=== PATIENT | female | born 1950 | race Two or more races ===

== ENCOUNTER 2025-02-18 19:21 | Inpatient (IN) | payer OTHER, MEDICAID ==
[~2025-02-18] VITALS: Ht 162.6 cm; Wt 68.2 kg
--- NOTE | 2025-02-18 19:40 | ECG ---
[facility] Test Date: 2025-02-18 Test Time: 19:22:46 Pat Name: ASTRID LEAVITT Department: ED Room: Gender: F Voice Intercept Technician: surinder : 1950 Requested By: EMERGENCY EMERGENCY Order Number: [id number] Reading MD: Beck Santamaria Measurements Intervals [place] Rate: 60 P: 10 MD: 205 QRS: 57 QRSD: 106 T: 62 QT: 423 QTc: 423 Interpretive Statements Sinus rhythm Abnormal R-wave progression, early transition Baseline wander in lead(s) V3 Electronically Signed On 02-18-2025 21:00:48 PDT by Beck Santamaria Please click the below link to view image of tracing.
[2025-02-18 20:36] LABS: Basophils # (auto) 0.1 10 ^3/uL (0-0.2); Basophils % (auto) 1.3 % (0.0-2.0); Eosinophils # (auto) 0.1 10 ^3/uL (0-0.8); Eosinophils % (auto) 1.5 % (0.0-7.0); Hematocrit 34.6 % (36.0-46.0); Hemoglobin 11.2 g/dL (12.2-16.2); Lymphocytes # (auto) 1.5 10 ^3/uL (0.4-5.4); Lymphocytes % (auto) 21.1 % (10.0-50.0); Mean Corpuscular Hemoglobin 27.2 pg (28.0-32.0); Mean Corpuscular Hgb Conc. 32.3 g/dL (32.0-36.0); Mean Corpuscular Volume 84.1 fL (80.0-100.0); Monocytes # (auto) 0.7 10 ^3/uL (0-1.3); Monocytes % (auto) 10.7 % (0.0-12.0); Neutrophils # (auto) 4.5 10 ^3/uL (1.6-8.6); Neutrophils % (auto) 65.4 % (37.0-80.0); Nucleated Red Blood Cells % 0.7 %; Platelet Count (auto) 316 10^3/uL (140-450); Red Blood Cells 4.11 10^6/uL (4.0-5.20); Red Cell Distribution Width 16.1 % (11.8-14.3); White Blood Cell 6.9 10^3/uL (4.4-10.8)
[2025-02-18 20:42] LABS: Alanine Aminotransferase 14 U/L (7-40); Alkaline Phosphatase 94 U/L (46-116); Anion Gap 7 (5-15); BUN/Creatinine Ratio 16.9 (10.0-20.0); Bilirubin, Total 0.4 mg/dL (0.2-1.0); Calcium 9.8 mg/dL (8.7-10.4); Carbon Dioxide 30 mmol/L (20-31); Chloride 103 mmol/L (98-107); Lipase 41 U/L (12-53); Sodium 140 mmol/L (136-145); Total Protein 7.5 g/dL (5.7-8.2)
[2025-02-18 20:50] LABS: Albumin 4.9 g/dL (3.2-4.8); Aspartate Aminotransferase 11 U/L (13-40); Blood Urea Nitrogen 26 mg/dL (9-23); Glucose 110 mg/dL (74-106); Potassium 5.1 mmol/L (3.5-5.1)
--- NOTE | 2025-02-18 21:05 | ECG ---
[facility] Test Date: 2025-02-18 Test Time: 20:39:37 Pat Name: ASTRID LEAVITT Department: ER Room: Gender: F Ore Bridge Operator: GOGO : 1950 Requested By: EMERGENCY EMERGENCY Order Number: [id number] Reading MD: Beck Santamaria Measurements Intervals [place] Rate: 58 P: 9 DC: 213 QRS: 59 QRSD: 84 T: 74 QT: 421 QTc: 414 Interpretive Statements Sinus rhythm Borderline prolonged DC interval Probable left atrial enlargement Abnormal R-wave progression, early transition Nonspecific T abnormalities, lateral leads Baseline wander in lead(s) V1 Electronically Signed On 02-18-2025 21:05:45 PDT by Beck Santamaria Please click the below link to view image of tracing.
--- NOTE | 2025-02-18 21:43 | DVH ---
INDICATION: Chest pain TECHNIQUE: Frontal view of the chest. COMPARISON: None FINDINGS: Findings. The heart and mediastinal contours are grossly unremarkable. There is no evidence of pleur al disease. The lungs are clear. There is bilateral mid lung baker subsegmental platelike atelectasi s. There is elevation of the right hemidiaphragm. The bony structures of the chest are intact witho ut fracture. IMPRESSION: 1. Bilateral subsegmental platelike atelectasis 2 . No evidence of airspace consolidation or pulmonary venous congestion
[2025-02-18] MEDS ORDERED: NITR0.4S29 SL (22:11)
--- NOTE | 2025-02-18 22:12 | ED.PDOC ---
HPI Comments Patient is a 74-year-old female who appears much older than her chronology arrives to the ED today via EMS with complaints of diffuse chest pain as well as left shoulder pain for the past two days. Patient states the pain has abdomen flowed over the past two days. Patient recently had a 2D echo performed by Dr. Daugherty. Unknown as to the results from that event. Patient denies any fever nausea or vomiting. Vital signs were stable on arrival. Patient received nitro and aspirin EN route. Patient arrives with a minimal chest pain. Chief Complaint: Chest Pain Time Seen by MD: 19:52 Reviewed Notes: Nurses Notes, Youth Corrections Officer Notes Allergies: Coded Allergies: NO KNOWN ALLERGIES (Unverified , 02/18/25) Home Meds Active Scripts Nitroglycerin (Nitrostat) 0.4 Mg Sub, 0.4 MG SL Q12HP PRN, #10 TAB Prov:TORRES SWENSON PAC 02/18/25 Information Source: Patient, Emergency Med Personnel Mode of Arrival: EMS Severity: Moderate Timing: Days Duration: Since onset Prehospital treatment: 12 Lead EKG, Treatment Location: Chest (L), Substernal Radiation: Shoulder (L) Quality: Squeezing, Pressure Onset: At Rest Cardiac Risk Factors: Other (History of chest pain concerns. Possible angina) PE Risk Factors: None History of: Similar pain in past, Aspirin Past Medical History PAST MEDICAL HISTORY: Denies Past Medical History (Other): Unknown but recent cardiac history Surgical History: Denies all surgeries BOX ORDER PERSON History: No Pertinent BOX ORDER PERSON History Family History Family History: Reviewed,noncontributory to illness, No family hx of Cancer, No family hx of DM, No family hx of Heart taylor, No family hx of HTN, No family hx ofKidney taylor, No family hx of Liver taylor, No family hx of Lung taylor, No family hx of Stroke Social History Smoker: Non-Smoker Alcohol: Denies ETOH Use Drugs: Denies Drug Use Lives In: Home Constitutional: denies: chills, diaphoresis, fatigue, fever, malaise, sweats, weakness, others EENTM: denies: blurred vision, double vision, ear bleeding, ear discharge, ear drainage, ear pain, ear ringing, eye pain, eye redness, hearing loss, mouth pain, mouth swelling, nasal discharge, nose bleeding, nose congestion, nose pain, photophobia, tearing, throat pain, throat swelling, voice changes, others Respiratory: denies: cough, hemoptysis, orthopnea, SOB at rest, shortness of breath, SOB with excertion, stridor, wheezing, others Cardiovascular: reports: chest pain; denies: dizzy spells, diaphoresis, Dyspnea on exertion, edema, irregular heart beat, left arm pain, lightheadedness, palpitations, PND, syncope, others Gastrointestinal: denies: abdomen distended, abdominal pain, blood streaked bowels, constipated, diarrhea, dysphagia, difficulty swallowing, hematemesis, melena, nausea, poor appetite, poor fluid intake, rectal bleeding, rectal pain, vomiting, others Genitourinary: denies: abnormal vagina bleeding, burning, dyspareunia, dysuria, flank pain, frequency, hematuria, incontinence, pain, , vagina discharge, urgency, others Neurological: denies: dizziness, fainting, headache, left sided numbness, left sided weakness, numbness, paresthesia, pre-existing deficit, right sided numbness, right sided weakness, seizure, speech problems, tingling, tremors, weakness, others Musculoskeletal: denies: back pain, gout, joint pain, joint swelling, muscle pain, muscle stiffness, neck pain, others Integumetry: denies: bruises, change in color, change in hair/nails, dryness, laceration, lesions, lumps, rash, wounds, others Allergic/Immunocompromised: denies: Difficulty Healing, Frequent Infections, Hives, Itching, others Hematologic/Lymphatic: denies: anemia, blood clots, easy bleeding, easy bruising, swollen glands, others Endocrine: denies: excessive hunger, excessive sweating, excessive thirst, excessive urination, flushing, intolerance to cold, intolerance to heat, unexplained weight gain, unexplained weight loss, others Psychiatric: denies: anxiety, bipolar disorder, depression, hopeless, panic disorder, schizophrenia, sleepless, suicidal, others Physical Exam General Appearance: Mild Distress (Patient was only in mild distress at time of evaluation.), Normal HEENT: Normal ENT Inspection, Pharynx Normal, TMs Normal Neck: Full Range of Motion, Non-Tender, Normal, Normal Inspection Respiratory: Chest Non-Tender, Lungs Clear, No Accessory Muscle Use, No Respiratory Distress, Normal Breath Sounds, Other (Unremarkable auscultation bilateral lung baker.) Cardiovascular: No Edema, No JVD, No Murmur, No Gallop, Normal Peripheral Pulses, Regular Rate/Rhythm, Other (Unremarkable cardiac evaluation.) Breast Exam: Deferred Gastrointestinal: No Organomegaly, Non Tender, No Pulsatile Mass, Normal Bowel Sounds, Soft Genitalia: Deferred Pelvic: Deferred Rectal: Deferred Extremities: No calf tenderness, Normal capillary refill, Normal inspection, Normal range of motion, Non-tender, No pedal edema Neurologic: Alert, No Motor Deficits, Normal Affect, Normal Mood, No Sensory Deficits Cerebellar Function: NOT DONE Reflexes: NOT DONE Skin: Dry, Normal Color, Warm Lymphatic: No Adenopathy Was a procedure done? Was a procedure done?: No CP Differential Dx Differential Diagnosis: A-fib, A-Flutter, Anxiety / Panic Attack, Atrial Dysrhythmia, AV Block 1st Degree, UT Differential Diagnosis: CHF Differential Diagnosis: Angina X-Ray, Labs, Meds, VS Vital Signs Date Time Temp Pulse Resp B/P (MAP) Pulse Ox O2 Delivery O2 Flow Rate FiO2 02/18/25 20:39 58 02/18/25 19:33 98.4 65 18 102/56 (71) 97 98.4 02/18/25 19:22 60 Lab Test 02/18/25 21:58 02/18/25 20:14 Range/Units Troponin I High Sensitivity Pending 10 </=34 ng/L White Blood Count 6.9 4.4-10.8 10^3/uL Red Blood Count 4.11 4.0-5.20 10^6/uL Hemoglobin 11.2 L 12.2-16.2 g/dL Hematocrit 34.6 L 36.0-46.0 % Mean Corpuscular Volume 84.1 80.0-100.0 fL Mean Corpuscular Hemoglobin 27.2 L 28.0-32.0 pg Mean Corpuscular Hemoglobin Concent 32.3 32.0-36.0 g/dL Red Cell Distribution Width 16.1 H 11.8-14.3 % Platelet Count 316 140-450 10^3/uL Mean Platelet Volume 9.6 6.9-10.8 fL Neutrophils (%) (Auto) 65.4 37.0-80.0 % Lymphocytes (%) (Auto) 21.1 10.0-50.0 % Monocytes (%) (Auto) 10.7 0.0-12.0 % Eosinophils (%) (Auto) 1.5 0.0-7.0 % Basophils (%) (Auto) 1.3 0.0-2.0 % Neutrophils # (Auto) 4.5 1.6-8.6 10 ^3/uL Lymphocytes # (Auto) 1.5 0.4-5.4 10 ^3/uL Monocytes # (Auto) 0.7 0-1.3 10 ^3/uL Eosinophils # (Auto) 0.1 0-0.8 10 ^3/uL Basophils # (Auto) 0.1 0-0.2 10 ^3/uL Nucleated Red Blood Cells 0.7 % Sodium Level 140 136-145 mmol/L Potassium Level 5.1 3.5-5.1 mmol/L Chloride Level 103 98-107 mmol/L Carbon Dioxide Level 30 20-31 mmol/L Anion Gap 7 5-15 Blood Urea Nitrogen 26 H 9-23 mg/dL Creatinine 1.54 H 0.550-1.02 mg/dL Glomerular Filtration Rate Calc 36 >90 mL/min BUN/Creatinine Ratio 16.9 10.0-20.0 Serum Glucose 110 H 74-106 mg/dL Calcium Level 9.8 8.7-10.4 mg/dL Total Bilirubin 0.4 0.2-1.0 mg/dL Aspartate Amino Transferase (AST) 11 L 13-40 U/L Alanine Aminotransferase (ALT) 14 7-40 U/L Alkaline Phosphatase 94 46-116 U/L B-Type Natriuretic Peptide 133.95 0-100 pg/mL Total Protein 7.5 5.7-8.2 g/dL Albumin 4.9 H 3.2-4.8 g/dL Lipase 41 12-53 U/L X-Ray, Labs, Meds, VS Comment All studies performed the ED were evaluated by me personally. Serum laboratories were unremarkable for any generalized concerns, but did reveal some kidney issues with elevated creatinine and BUN. Cardiac markers were unremarkable. EKG revealed a sinus rhythm with a rate of 60. Abnormal R-wave progression and early transition as well as baseline wander in leads V3. AL interval of 205 and QT interval 423. Chest x-ray was unremarkable for any consolidation or fibrotic concerns. Some atelectasis noted. Not sure the cause of the patient's chest pain concerns, but due to the acute renal issues as well as patient's age and unrelenting chest pain. Patient will be admitted for acute renal injury as well as acute coronary syndrome. Time of 1ST Reevaluation: 22:10 Reevaluation 1ST: Improved Consultation: PCP, Cardiology Patient Education/Counseling: Diagnosis, Treatment Family Education/Counseling: Diagnosis, Treatment Departure 1 Departure Time of Disposition: 22:10 Impression: Primary Impression: Acute coronary syndrome Additional Impression: Acute renal injury Disposition: ADMITTED INPATIENT Condition: Stable Discharged With: Self Critical Care Note Critical Care Time?: No Stability Stability form required: No Heart Score Heart Score: Heart Score Response (Comments) Value History Slightly Suspicious 0 EKG Repolarization Disturb 1 Age >65 2 Risk Factors 1 or 2 risk factors 1 Troponin Normal limit 0 Total 4 TORRES SWENSON PAC February 18, 2025 22:12
[2025-02-18] MEDS ORDERED: ONDANSETRON HCL 4 MG/2 ML VIAL IV PRN (23:00)
[2025-02-18] MEDS ORDERED: MORPHINE SULFATE INJ 2 MG/ml SYRG IV PRN (23:00)
[2025-02-18] MEDS ORDERED: NITROGLYCERIN 0.4 MG SL TAB SL PRN (23:00)
--- NOTE | 2025-02-18 23:26 | DVHHP2 ---
History of Present Illness History of Present Illness Patient is 74 years old female with a history of hypertension, diabetes mellitus type 2, hyperlipidemia, heart failure, anxiety, depression came with a complaint of chest pain. As per patient patient started having chest pain yesterday around noon when she was lying down, sudden onset, central, radiating to the jaw and left side of the chest, sharp, 10/10, intermittent, no aggravating or relieving factor. Patient also reported he has been having exertional shortness of breaths like from walking from due to the parking lot she gets short of breath for last more then a year. On further inquiry patient also reported she has been nauseous and had 1 time vomiting yesterday, only fluid no blood. Patient denied any fever, palpitation, acute joint pain or swelling, leg swelling dysuria dysarthria or change in vision. Initial lab workup revealed hemoglobin 11 2, serum creatinine 1.54, BUN 26, troponin I 10> 8, BNP 133.95. CXR- Bilateral subsegmental platelike atelectasis. Lower extremity Doppler study negative for DVT. PCP Dr. Mack Stovall Recreation Manager Dr. 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 daily, prazosin 1 mg p.o. daily, sertraline 50 mg p.o. daily, gabapentin 100 mg 3 times a day, atorvastatin, pantoprazole, levetiracetam 500 mg b.i.d., tizanidine 2 mg at bedtime, aspirin 81 mg p.o. daily, fluoxetine 20 mg daily, Review of Systems Review of Systems Allergy- NKDA Patient was seen today at the bedside. Cardiovascular- deny acute cough or palpitation Respiratory denies cough or or wheezing Gastrointestinal- denies any rectal bleeding, nausea or vomiting Musculoskeletal-denies acute joint swelling or tenderness or redness Neurological- denies acute dysarthria, dysphagia, change in vision Psychiatry- denies depression or SI or HI Skin- denies acute rash or purpura Allergies: Coded Allergies: NO KNOWN ALLERGIES (Unverified , 02/18/25) Medications Current Medications Medications Dose Ordered Sig/Murtaza Route Start Time Stop Time Status Last Admin Dose Admin Sodium Chloride 10 ml Q8HR IV 02/19/25 06:00 Ondansetron HCl 4 mg Q4HP PRN IV 02/18/25 23:00 Morphine Sulfate 2 mg Q4HPRN PRN IV 02/18/25 23:00 Nitroglycerin 0.4 mg Q5MINP PRN SL 02/18/25 23:00 Morphine Sulfate 2 mg Q30M PRN IV 02/18/25 23:00 Exam Vital Signs Vital Signs Date Time Temp Pulse Resp B/P (MAP) Pulse Ox O2 Delivery O2 Flow Rate FiO2 02/18/25 23:19 97.9 57 15 117/72 (87 93 97.9 Exam General examination-awake, alert, conversant HEENT- PEERLA, no acute nasal discharge Cardiovascular- S1-S2 audible, rate and rhythm regular, no murmur Respiratory- CTAB, no wheeze or rhonchi Gastrointestinal-nontender, bowel sound+. Nondistended Musculoskeletal-no acute joint swelling or tenderness or redness Lower extremity- no leg swelling Neurological- cranial nerves intact, no acute dysarthria or dysphagia Psychiatry- denies depression or SI or HI Skin- no acute rash or purpura Labs/Xrays Labs Test 02/18/25 21:58 02/18/25 20:14 Range/Units Troponin I High Sensitivity 8 </=34 ng/L White Blood Count 6.9 4.4-10.8 10^3/uL Red Blood Count 4.11 4.0-5.20 10^6/uL Hemoglobin 11.2 L 12.2-16.2 g/dL Hematocrit 34.6 L 36.0-46.0 % Mean Corpuscular Volume 84.1 80.0-100.0 fL Mean Corpuscular Hemoglobin 27.2 L 28.0-32.0 pg Mean Corpuscular Hemoglobin Concent 32.3 32.0-36.0 g/dL Red Cell Distribution Width 16.1 H 11.8-14.3 % Platelet Count 316 140-450 10^3/uL Mean Platelet Volume 9.6 6.9-10.8 fL Neutrophils (%) (Auto) 65.4 37.0-80.0 % Lymphocytes (%) (Auto) 21.1 10.0-50.0 % Monocytes (%) (Auto) 10.7 0.0-12.0 % Eosinophils (%) (Auto) 1.5 0.0-7.0 % Basophils (%) (Auto) 1.3 0.0-2.0 % Neutrophils # (Auto) 4.5 1.6-8.6 10 ^3/uL Lymphocytes # (Auto) 1.5 0.4-5.4 10 ^3/uL Monocytes # (Auto) 0.7 0-1.3 10 ^3/uL Eosinophils # (Auto) 0.1 0-0.8 10 ^3/uL Basophils # (Auto) 0.1 0-0.2 10 ^3/uL Nucleated Red Blood Cells 0.7 % Sodium Level 140 136-145 mmol/L Potassium Level 5.1 3.5-5.1 mmol/L Chloride Level 103 98-107 mmol/L Carbon Dioxide Level 30 20-31 mmol/L Anion Gap 7 5-15 Blood Urea Nitrogen 26 H 9-23 mg/dL Creatinine 1.54 H 0.550-1.02 mg/dL Glomerular Filtration Rate Calc 36 >90 mL/min BUN/Creatinine Ratio 16.9 10.0-20.0 Serum Glucose 110 H 74-106 mg/dL Calcium Level 9.8 8.7-10.4 mg/dL Total Bilirubin 0.4 0.2-1.0 mg/dL Aspartate Amino Transferase (AST) 11 L 13-40 U/L Alanine Aminotransferase (ALT) 14 7-40 U/L Alkaline Phosphatase 94 46-116 U/L B-Type Natriuretic Peptide 133.95 0-100 pg/mL Total Protein 7.5 5.7-8.2 g/dL Albumin 4.9 H 3.2-4.8 g/dL Lipase 41 12-53 U/L Assessment/Plan Assessment/Plan Assessment and plan Acute chest pain, rule out acute coronary syndrome Rule out acute pulmonary embolism-elevated D-dimer, ordered V/Q scan Hypertension Diabetes mellitus type 2 Hyperlipidemia History of heart failure systolic versus diastolic Sinus bradycardia, likely due to beta nguyen- patient was on metoprolol Suspected EVELINA likely due to VMN Suspected CKD likely stage III Mild anemia likely anemia of chronic disease Anxiety Depression CXR-Bilateral subsegmental platelike atelectasis. No evidence of airspace consolidation or pulmonary venous congestion BUN 33, troponin I with a normal limit, HbA1c 6.2 Plan Continue aspirin 81 mg p.o. daily Atorvastatin 40 mg p.o. q.h.s. Lasix 20 mg p.o. daily Pantoprazole as prescribed Lovenox DVT prophylaxis Insulin sliding scale as prescribed Ordered Echo 2D Ordered cardiology consult for further evaluation and care Ordered V/Q scan to rule out pulmonary embolism PCP Dr. Mack Stovall Recreation Manager Dr. Santamaria Goals of care, Code status ; discussed with >15 minutes PUD prophylaxis: Pantoprazole DVT prophylaxis: Lovenox Plan discussed with Dr. Hernández , nursing staff, Total time spent on patient evaluation, chart review, assessment and plan, discussion discussion >35 minutes Plan discussed with: Patient, Other (RN) My Orders Orders - VIKASH BANKS RESIDENT Procedure Category Date Status Time Admit ADMIT 02/18/25 Transmitted 22:51 Code Status CODE 02/18/25 Transmitted 22:51 Sodium Chloride Lock PHA 02/19/25 In Process (Saline Lock Ns) 06:00 Ondansetron Hcl PHA 02/18/25 In Process (Zofran) 23:00 Complete Blood Count LAB 02/19/25 Verified 04:00 Comprehensive LAB 02/19/25 Verified Metabolic Panel 04:00 Echo 2d Mode Cardiac US 02/18/25 Logged DOP 22:51 Morphine Sulfate PHA 02/18/25 In Process Injection 23:00 Nitroglycerin PHA 02/18/25 In Process Sublingual (Ntrostat 23:00 Morphine Sulfate PHA 02/18/25 In Process Injection 23:00 Oxygen By Nasal RT 02/18/25 Transmitted Cannula 22:51 Stat Ekg For Chest JOSE 02/18/25 In Process Pain 22:51 Notify Of Changes JOSE 02/18/25 In Process From Base 22:51 Bulk System Operator For JOSE 02/18/25 In Process 24 Hours 22:51 Emergency Dysrhythmia JOSE 02/18/25 In Process Protocol 22:51 Rhythm Strips Once JOSE 02/18/25 In Process Every Shift 22:51 Consistent DIET 02/19/25 Verified Carb(Ccho)Diabetes Breakfast Cardiac DIET 02/19/25 Verified Diet-2gna,Lofat,Lochol Breakfast Date of Service: February 18, 2025 Billing Provider: HERNÁNDEZ,IMRAN M MD Common Visit Codes: 39709-[id number] INP/OBS CARE (HIGH) Secondary Visit Codes: 21108-[id number] CARE PLAN 30 MINUTES VIKASH BANKS RESIDENT February 18, 2025 23:26
[2025-02-19] VITALS (9 sets, daily range): BP systolic 117–145; BP diastolic 54–70; PULSE 53–95; RESP 14–18; TEMP 97.3–97.8; O2SAT 94–96
[2025-02-19] MEDS: ATORVASTATIN 20 MG TAB PO ONE (00:45)
[2025-02-19] MEDS: ENOXAPARIN SOD 40 MG/0.4 ML SYRINGE SC ONE (00:45)
[2025-02-19] MEDS: PANTOPRAZOLE 40 MG/10 ML VIAL INJ IV ONE (00:45)
[2025-02-19] MEDS ORDERED: DEXTROSE (50%) 50ML SYRG IV PRN (00:45)
[2025-02-19] MEDS: ASPirin 81 mg TAB PO ONE (00:45)
--- NOTE | 2025-02-19 01:20 | DVH ---
Bilateral lower extremity venous duplex Clinical History: Sudden chest pain, D-dimer elevated Comparison: None Technique: Duplex Doppler evaluation of the deep venous systems of both lower extremities from the common femora l veins to the popliteal veins including color Doppler and spectral/pulsed waveform analysis was perf ormed. Findings: RIGHT SIDE: The common femoral vein was not visualized due to overlying bandage. The great saphenous vein was not visualized due to overlying bandage. The proximal superficial femoral vein was not visualized due to overlying bandage; the mid to distal superficial femoral vein demonstrates appropriate compressibility and waveform variability. There is normal compressibility at the tibioperoneal trunk. LEFT SIDE: The common femoral vein demonstrates appropriate compressibility and waveform variability. There is compressibility/patency of the great saphenous vein at the proximal thigh. The femoral vein demonstrates appropriate compressibility and waveform variability. There is normal compressibility at the tibioperoneal trunk. Impression: No evidence of right or left femoropopliteal venous thrombosis. The right common femoral vein, saphen ous vein, and proximal superficial femoral vein were not visualized due to overlying bandage.
[2025-02-19] MEDS: MORPHINE SULFATE INJ 2 MG/ml SYRG IV PRN (03:37)
[2025-02-19] MEDS ORDERED: TIZA4TAB9 PO (04:13)
[2025-02-19] MEDS ORDERED: PRAZ1CAP2 PO (04:13)
[2025-02-19] MEDS ORDERED: ATOR20TA PO (04:13)
[2025-02-19] MEDS ORDERED: ASPI-543 PO (04:13)
[2025-02-19] MEDS ORDERED: LIDO5PAD12 EX (04:13)
[2025-02-19] MEDS ORDERED: BACL20TA PO (04:13)
[2025-02-19] MEDS ORDERED: OYST1TAB OR (04:13)
[2025-02-19] MEDS ORDERED: FAMO-12 PO (04:13)
[2025-02-19] MEDS ORDERED: AMIT10TA12 PO (04:13)
[2025-02-19] MEDS ORDERED: MECL-90 PO (04:13)
[2025-02-19] MEDS ORDERED: SERT-206 PO (04:13)
[2025-02-19] MEDS ORDERED: PANC3000 PO (04:13)
[2025-02-19] MEDS ORDERED: METO-158 PO (04:13)
[2025-02-19] MEDS ORDERED: TOPI25CA5 PO (04:13)
[2025-02-19] MEDS ORDERED: GABA-1308 PO (04:13)
[2025-02-19] MEDS ORDERED: [UNRECOGNIZED DRUG - CODE] BU (04:13)
[2025-02-19] MEDS ORDERED: FLUO-125 PO (04:13)
[2025-02-19] MEDS ORDERED: NORT25CA GT (04:13)
[2025-02-19] MEDS ORDERED: PANT1INJ3 IV (04:13)
[2025-02-19] MEDS ORDERED: LORA-35 PO (04:13)
[2025-02-19] MEDS ORDERED: [UNRECOGNIZED DRUG - CODE] IV (04:13)
[2025-02-19] MEDS ORDERED: DIPH-751 PO (04:13)
[2025-02-19] MEDS ORDERED: LEVE500T40 PO (04:13)
[2025-02-19] MEDS ORDERED: FURO20TA3 PO (04:13)
[2025-02-19] MEDS ORDERED: FAMC125T2 PO (04:13)
[2025-02-19] MEDS ORDERED: SILD50TA PO ×2 (04:13)
[2025-02-19 05:02] LABS: Rapid Influenza A Negative (Negative); Rapid Influenza B Negative (Negative)
[2025-02-19 05:03] LABS: COVID19 ANTIGEN SOFIA FIA NEGATIVE (NEGATIVE)
[2025-02-19] MEDS: SODIUM CHLOR 0.9% PF (SALINE LOCK) 10ML VIAL/SYR IV SCH (05:52)
[2025-02-19 06:46] LABS: Alkaline Phosphatase 92 U/L (46-116)
[2025-02-19 06:47] LABS: Alanine Aminotransferase 13 U/L (7-40); Albumin 4.7 g/dL (3.2-4.8); Chloride 104 mmol/L (98-107); Magnesium 2.1 mg/dL (1.6-2.6); Potassium 4.3 mmol/L (3.5-5.1); Sodium 142 mmol/L (136-145); Total Protein 7.5 g/dL (5.7-8.2)
[2025-02-19 06:48] LABS: Bilirubin, Total 0.5 mg/dL (0.2-1.0)
[2025-02-19 06:50] LABS: Basophils # (auto) 0 10 ^3/uL (0-0.2); Basophils % (auto) 0.5 % (0.0-2.0); Eosinophils # (auto) 0.2 10 ^3/uL (0-0.8); Eosinophils % (auto) 2.4 % (0.0-7.0); Hematocrit 34.8 % (36.0-46.0); Hemoglobin 11.3 g/dL (12.2-16.2); Lymphocytes # (auto) 1.7 10 ^3/uL (0.4-5.4); Lymphocytes % (auto) 24.6 % (10.0-50.0); Mean Corpuscular Hemoglobin 27.2 pg (28.0-32.0); Mean Corpuscular Hgb Conc. 32.4 g/dL (32.0-36.0); Mean Corpuscular Volume 84.1 fL (80.0-100.0); Monocytes # (auto) 0.7 10 ^3/uL (0-1.3); Neutrophils # (auto) 4.2 10 ^3/uL (1.6-8.6); Neutrophils % (auto) 61.5 % (37.0-80.0); Nucleated Red Blood Cells % 0.2 %; Platelet Count (auto) 301 10^3/uL (140-450); Red Blood Cells 4.14 10^6/uL (4.0-5.20); Red Cell Distribution Width 16.3 % (11.8-14.3); White Blood Cell 6.8 10^3/uL (4.4-10.8)
[2025-02-19 06:51] LABS: Aspartate Aminotransferase 13 U/L (13-40); BUN/Creatinine Ratio 20.2 (10.0-20.0); Blood Urea Nitrogen 25 mg/dL (9-23); Calcium 10.5 mg/dL (8.7-10.4); Glucose 149 mg/dL (74-106)
[2025-02-19 06:56] LABS: Anion Gap 9 (5-15); Carbon Dioxide 29 mmol/L (20-31)
[2025-02-19] MEDS: ACCU-CHEK COMFORT CURVE STRIP VI SCH (06:59)
[2025-02-19] MEDS: InsuLIN REG 1unit/0.01ml Soln (100units/ml) SC SCH (07:00)
[2025-02-19] MEDS: FUROSEMIDE 40 MG TAB PO SCH (09:47)
[2025-02-19] MEDS: ASPirin 81 mg TAB PO SCH (09:47)
[2025-02-19] MEDS: SERTRALINE HCL 50 MG TAB PO SCH (09:48)
[2025-02-19] MEDS: PANTOPRAZOLE 40 MG/10 ML VIAL INJ IV SCH (09:49)
[2025-02-19] MEDS: ENOXAPARIN SOD 40 MG/0.4 ML SYRINGE SC SCH (09:49)
[2025-02-19 09:57] LABS: Hepatitis B Surface Antigen Negative (Negative)
[2025-02-19 10:18] LABS: Hepatitis C Antibody Negative (Negative)
--- NOTE | 2025-02-19 11:10 | DVHINCON2 ---
Date Seen: February 19, 2025 Referring Physician MD Kvng Reason for Consultation Chest pain History of Present Illness This is a 74-year-old female who presented to the emergency room via EMS with a chief complaint of chest pain since Saturday. Describes her chest pain as substernal radiating to the left chest wall area and left flank area, sharp in nature, intermittent, and non provoked. She follows up in the outpatient setting with Dr. Santamaria undergoing a recent cardiac catheterization without catheter based intervention given normal coronaries, a ventriculography revealing an EF of 60%, and significant pulmonary hypertension with right ventricular systolic pressures of 60 mmHg (02/10/2025). She underwent multiple 12 lead electrocardiogram revealing a sinus rhythm with an associated first-deg ree atrioventricular block. Significant medical history includes severe pulmonary hypertension on sildenafil therapy, primary hypertension, prediabetes, anxiety, depression, and history of drug abuse quitting approximately 10 years ago. Past Medical History Past medical history reviewed. No other significant than mentioned above. Past Surgical History Past surgical history reviewed. No other significant than mentioned above. Family History: Alcoholism G8 FATHER Arthritis G8 MOTHER Diabetes mellitus G8 MOTHER FH: lupus G8 SISTER Family History Family history reviewed. Social History Admits to occasional alcohol use. Denies the use of illicit drugs or tobacco use. Admits to history of tobacco, cocaine, and cannabinoids in the past. Allergies: Coded Allergies: NO KNOWN ALLERGIES (Unverified , 02/18/25) Home Meds Reported Medications Nortriptyline Hcl (PAMELOR CAPSULE) 25 Mg Cp, 25 MG GT DAILY, CAP 02/19/25 Amitriptyline Hcl (Amitriptyline Hcl) 10 Mg Tab, 10 MG PO HS for 30 Days, MG 0 Refills 02/19/25 Topiramate (Topiramate) 25 Mg Cap, 25 MG PO for 30 Days, MG 02/19/25 Sertraline Hcl (Sertraline Hcl) 50 Mg Tab, 50 MG PO DAILY for 30 Days, MG 02/19/25 Prazosin Hcl (Minipres) 1 Mg Cp, 1 CAP PO QPM, #30 CAP 02/19/25 Cetirizine Base (Quzyttir) 10 Mg/Ml Inj, 10 MG IV DAILY, INJ 02/19/25 Sildenafil Citrate (Viagra) 50 Mg Tab, 25 MG PO TID, TAB 02/19/25 Sildenafil Citrate (Viagra) 50 Mg Tab, 1 TAB PO UD, #6 TAB 5 Refills 02/19/25 Furosemide (Furosemide) 20 Mg Tab, MG PO BIDD for 30 Days, MG 02/19/25 Buprenorphine HCl (Belbuca) 75 Mcg Mis, 75 MCG BU, MISC 02/19/25 Lidocaine (Lidocaine Patch 5%) 5 % Pad, 5 % EX DAILY, PAD 02/19/25 Diphenhydramine Hcl (Banophen) 25 Mg Cap, 25 MG PO TID, CAP 02/19/25 Fluoxetine Hcl (Fluoxetine Hcl) 20 Mg Cap, 20 MG PO DAILY for 30 Days, MG 02/19/25 Aspirin (Aspir-Low) 81 Mg Tab, 81 MG PO DAILY for 30 Days, MG 02/19/25 Famciclovir (Famciclovir) 125 Mg Tab, 125 MG PO BID, TAB 02/19/25 Famotidine (Famotidine) 20 Mg Tab, 20 MG PO BID for 30 Days, MG 02/19/25 Tizanidine Hydrochloride (Zanaflex) 4 Mg Tab, 0.5 TAB PO QPM, #30 TAB 02/19/25 Loratadine (Loradamed) 10 Mg Tab, 10 MG PO DAILY, MG 02/19/25 Levetiracetam (Keppra) 500 Mg Tab, 1 TAB PO BID, #180 TAB 3 Refills 02/19/25 Pantoprazole Sodium (PANTOPRAZOLE SODIUM) 40 Mg Inj, 40 MG IV, INJ 02/19/25 Meclizine Hcl (Meclizine Hcl) 25 Mg Tab, 25 MG PO TID for 30 Days, MG 02/19/25 Metoprolol Tartrate (Metoprolol Tartrate) 50 Mg Tab, 50 MG PO for 30 Days, MG 02/19/25 Atorvastatin Calcium (Lipitor) 20 Mg Tab, 1 TAB PO DAILY, #90 TAB 1 Refill 02/19/25 Gabapentin (Gabapentin) 100 Mg Cap, 100 MG PO TID 02/19/25 Oyster Shell (OYSTER SHELL CALCIUM 500) 500 Mg Tab, 500 MG OR DAILY, TAB 02/19/25 Baclofen (Baclofen) 20 Mg Tab, 10 MG PO TID, TAB 02/19/25 Pancreatic Enzymes (CREON) 3,000 Unit Cap, 6000 UNIT PO TID, CAP 02/19/25 Home Meds Home medications reviewed. Current Medications Current Medications Medications (Trade) Dose Ordered Sig/Murtaza Route PRN Reason Start Time Stop Time Status Last Admin Sodium Chloride (Saline Lock Ns) 10 ml Q8HR IV 02/19/25 06:00 02/19/25 05:52 Ondansetron HCl (Zofran) 4 mg Q4HP PRN IV NAUSEA / VOMITING 02/18/25 23:00 Morphine Sulfate 2 mg Q4HPRN PRN IV SEVERE PAIN (7-10 PAIN SCALE) 02/18/25 23:00 02/19/25 03:37 Nitroglycerin (Ntrostat Sublingual) 0.4 mg Q5MINP PRN SL FOR CHEST PAIN 02/18/25 23:00 Morphine Sulfate 2 mg Q30M PRN IV FOR CHEST PAIN 02/18/25 23:00 Aspirin 81 mg DAILY PO 02/19/25 10:00 02/19/25 09:47 Atorvastatin Calcium (Lipitor) 40 mg HS PO 02/19/25 22:00 Enoxaparin Sodium (Lovenox) 40 mg DAILY SC 02/19/25 10:00 02/19/25 09:49 Pantoprazole Sodium (Protonix) 40 mg DAILY IV 02/19/25 10:00 02/19/25 09:49 Furosemide (Lasix Tablet) 20 mg DAILY PO 02/19/25 10:00 02/19/25 09:47 Sertraline HCl (Zoloft) 50 mg DAILY PO 02/19/25 10:00 02/19/25 09:48 Diagnostic Test (Pha) (Accu-Chek Comfort Curve T) 1 strip ACHS 02/19/25 07:00 02/19/25 06:59 Insulin Human Regular (InsuLIN R) ACHS SC 02/19/25 07:00 Dextrose 50 ml UD PRN IV Blood Sugar LESS THAN 60 02/19/25 00:45 Review of Systems Constitutional: No symptom reported Ears, Nose, & Throat: No symptom reported Eyes: No symptom reported Neurological: No symptoms reported Pulmonary/Respiratory: No symptom reported Cardiovascular: Chest pain Gastrointestinal: No symptom reported Genitourinary: No symptom reported Musculoskeletal: No symptom reported Skin: No symptom reported Psychiatric: No symptom reported Endocrine: No symptom reported Hemotologic/Lymphatic: No symptom reported Vital Signs Vital Signs Date Time Temp Pulse Resp B/P (MAP) Pulse Ox O2 Delivery O2 Flow Rate FiO2 02/19/25 09:47 124/61 02/19/25 09:30 97.3 72 16 94 97.3 02/19/25 08:00 Room Air* 0 21 Physical Exam General Appearance: Cooperative. Well developed. Well nourished. In no acute distress Head Exam: Normal inspection Neck Exam: Normal inspection. Non-tender. Normal alignment Pulmonary/Respiratory: Chest non-tender. Clear bilateral breath sounds Cardiovascular/Chest: Regular rate and rhythm. S1, S2. NSR. No murmurs. No JVD. Peripheral Pulses: 2+ Radial (R). 2+ Radial (L). 2+ Pedal (R). 2+ Pedal (L) Abdominal Exam: Normal bowel sounds. Soft. Nontender. No hepatospenomegaly. No masses Ankle Exam: Negative ankle edema Lower extremities: Negative lower extremity edema Neuro/Mental Status: A&O x4. Coherent Thoughts/Psych: Normal thought pattern. Appropriate mood and affect. Good judgement and insight Appearance: In no acute distress Skin Exam: Normal inspection. Normal color. Warm. Dry Labs/Diagnostic Data Labs Test 02/19/25 07:01 02/19/25 05:55 02/19/25 03:15 02/18/25 21:58 Range/Units POC Glucose 142 H 70-106 mg/dl White Blood Count 6.8 4.4-10.8 10^3/uL Red Blood Count 4.14 4.0-5.20 10^6/uL Hemoglobin 11.3 L 12.2-16.2 g/dL Hematocrit 34.8 L 36.0-46.0 % Mean Corpuscular Volume 84.1 80.0-100.0 fL Mean Corpuscular Hemoglobin 27.2 L 28.0-32.0 pg Mean Corpuscular Hemoglobin Concent 32.4 32.0-36.0 g/dL Red Cell Distribution Width 16.3 H 11.8-14.3 % Platelet Count 301 140-450 10^3/uL Mean Platelet Volume 9.7 6.9-10.8 fL Neutrophils (%) (Auto) 61.5 37.0-80.0 % Lymphocytes (%) (Auto) 24.6 10.0-50.0 % Monocytes (%) (Auto) 11.0 0.0-12.0 % Eosinophils (%) (Auto) 2.4 0.0-7.0 % Basophils (%) (Auto) 0.5 0.0-2.0 % Neutrophils # (Auto) 4.2 1.6-8.6 10 ^3/uL Lymphocytes # (Auto) 1.7 0.4-5.4 10 ^3/uL Monocytes # (Auto) 0.7 0-1.3 10 ^3/uL Eosinophils # (Auto) 0.2 0-0.8 10 ^3/uL Basophils # (Auto) 0 0-0.2 10 ^3/uL Nucleated Red Blood Cells 0.2 % Sodium Level 142 136-145 mmol/L Potassium Level 4.3 3.5-5.1 mmol/L Chloride Level 104 98-107 mmol/L Carbon Dioxide Level 29 20-31 mmol/L Anion Gap 9 5-15 Blood Urea Nitrogen 25 H 9-23 mg/dL Creatinine 1.24 H 0.550-1.02 mg/dL Glomerular Filtration Rate Calc 46 >90 mL/min BUN/Creatinine Ratio 20.2 H 10.0-20.0 Serum Glucose 149 H 74-106 mg/dL Calcium Level 10.5 H 8.7-10.4 mg/dL Magnesium Level 2.1 1.6-2.6 mg/dL Total Bilirubin 0.5 0.2-1.0 mg/dL Aspartate Amino Transferase (AST) 13 13-40 U/L Alanine Aminotransferase (ALT) 13 7-40 U/L Alkaline Phosphatase 92 46-116 U/L Total Protein 7.5 5.7-8.2 g/dL Albumin 4.7 3.2-4.8 g/dL Hepatitis B Surface Antigen Negative Negative Hepatitis C Antibody Negative Negative Influenza Type A Antigen Negative Negative Influenza Type B Antigen Negative Negative SARS-CoV-2 Antigen (Rapid) Negative NEGATIVE Troponin I High Sensitivity 8 </=34 ng/L Thyroid Stimulating Hormone (TSH) 3.20 0.55-4.78 uIU/mL Test 02/18/25 20:14 Range/Units D-Dimer, Quantitative 1.39 H 0.0-0.49 mg/L FEU Hemoglobin A1c 6.2 H <5.7 % A1C B-Type Natriuretic Peptide 133.95 0-100 pg/mL Lipase 41 12-53 U/L Assessment Chest pain rule out acute PE Pulmonary hypertension of severe degree (on sildenafil) Primary hypertension Prediabetes HX of drug abuse Plan/Recommendation (Dr. Santamaria) The patient underwent a transthoracic echocardiogram on 11/03/2024 revealing an LVEF of 60% right ventricular systolic pressures of 90 mmHg. She also underwent a recent right and left cardiac catheterization without catheter based intervention given normal coronaries and with right ventricular systolic pressure is measuring at 60 mmHg (02/10/2025). Patient is to continue sildenafil therapy and follow-up with Dr. Santamaria's as scheduled on 02/26/2025 at 9:45 a.m. in the setting of an unremarkable V/Q scan, there is no further cardiac workup indicated at this time. Thank you for allowing us to participate in this patient's care. Please call if you have any questions or concerns.. This medical document was created using an electronic medical record system with voice recognition software and computerized dictation system. Although this document has been carefully reviewed, there might still be some phonetic and typographical errors. Occasional wrong-word or ``sound-alike substitutions may have occurred due to the inherent limitations of voice recognition software. These areas are purely typographical due to imperfections of the software programs and do not reflect any compromise in the patient's medical care. Please read the chart carefully and recognize, using context, where these s ubstitutions have occurred. Plan discussed with: Patient, Other NYHA Physical activity limitations: NA Date of Service: February 19, 2025 Billing Provider: GISELE CAMPBELL Cardiology Common Codes: [id number] INP/OBS CARE (High) GISELE CAMPBELL February 19, 2025 11:10
--- NOTE | 2025-02-19 12:00 | DVH ---
EXAM: NM NM VQ SCAN HISTORY: PULMONARY EMBOLISM COMPARISON: None TECHNIQUE: 7 mCi of xenon 133 were utilized for the perfusion portion of the study. 4.2 mCi of Tc99m DTPA were utilized for the ventilation portion of the study. FINDINGS: Ventilation and perfusion images show homogeneous uptake of the radiotracer in both lungs without rogerio dence for large mismatched defect. IMPRESSION: 1. Low probability pulmonary embolism.
[2025-02-19 13:17] LABS: Urine Bacteria None Seen /hpf (None Seen)
--- NOTE | 2025-02-19 13:26 | DVHPN2 ---
Reviewed: Care Plan, H&P, Labs, Medications, Previous Orders, Radiology Changes from previous H/P or p: No Changes Objective Vitals Vital Signs Date Time Temp Pulse Resp B/P (MAP) Pulse Ox O2 Delivery O2 Flow Rate FiO2 02/19/25 13:21 97.6 53 18 117/57 (77) 96 97.6 02/19/25 08:00 Room Air* 0 21 Intake/Output Intake and Output 02/19/25 07:00 Intake Total 200 ml Balance 200 ml Intake Oral 200 ml # Voids 2 Medications Current Medications Medications Dose Ordered Sig/Murtaza Route Start Time Stop Time Status Last Admin Dose Admin Sodium Chloride 10 ml Q8HR IV 02/19/25 06:00 02/19/25 05:52 10 ML Ondansetron HCl 4 mg Q4HP PRN IV 02/18/25 23:00 Morphine Sulfate 2 mg Q4HPRN PRN IV 02/18/25 23:00 02/19/25 03:37 2 MG Nitroglycerin 0.4 mg Q5MINP PRN SL 02/18/25 23:00 Morphine Sulfate 2 mg Q30M PRN IV 02/18/25 23:00 Aspirin 81 mg DAILY PO 02/19/25 10:00 02/19/25 09:47 81 MG Atorvastatin Calcium 40 mg HS PO 02/19/25 22:00 Enoxaparin Sodium 40 mg DAILY SC 02/19/25 10:00 02/19/25 09:49 40 MG Pantoprazole Sodium 40 mg DAILY IV 02/19/25 10:00 02/19/25 09:49 40 MG Furosemide 20 mg DAILY PO 02/19/25 10:00 02/19/25 09:47 20 MG Sertraline HCl 50 mg DAILY PO 02/19/25 10:00 02/19/25 09:48 50 MG Diagnostic Test (Pha) 1 strip ACHS 02/19/25 07:00 02/19/25 11:48 1 STRIP Insulin Human Regular ACHS SC 02/19/25 07:00 Dextrose 50 ml UD PRN IV 02/19/25 00:45 Laboratory Results Laboratory Tests 02/19/25 05:55 Chemistry Test 02/18/25 20:14 02/18/25 21:58 02/19/25 05:55 Albumin 4.9 g/dL (3.2-4.8) H 4.7 g/dL (3.2-4.8) Calcium Level 9.8 mg/dL (8.7-10.4) 10.5 mg/dL (8.7-10.4) H Total Protein 7.5 g/dL (5.7-8.2) 7.5 g/dL (5.7-8.2) Magnesium Level 2.0 mg/dL (1.6-2.6) 2.1 mg/dL (1.6-2.6) Coagulation Test 02/18/25 20:14 D-Dimer, Quantitative 1.39 mg/L FEU (0.0-0.49) H Lipid panel Test 02/18/25 20:14 Lipase 41 U/L (12-53) Cardiac Markers Test 02/18/25 20:14 B-Type Natriuretic Peptide 133.95 pg/mL (0-100) LFT Test 02/18/25 20:14 02/19/25 05:55 Alanine Aminotransferase (ALT) 14 U/L (7-40) 13 U/L (7-40) Alkaline Phosphatase 94 U/L (46-116) 92 U/L (46-116) Aspartate Amino Transferase (AST) 11 U/L (13-40) L 13 U/L (13-40) Total Bilirubin 0.4 mg/dL (0.2-1.0) 0.5 mg/dL (0.2-1.0) HgA1c, TSH Test 02/18/25 20:14 02/18/25 21:58 Hemoglobin A1c 6.2 % A1C (<5.7) H Thyroid Stimulating Hormone (TSH) 3.20 uIU/mL (0.55-4.78) Urinalysis Test 02/19/25 13:05 Urine Color Pending Urine Clarity Pending Urine pH Pending Urine Specific [place] Pending Urine Protein Pending Urine Ketones Pending Urine Blood Pending Urine Nitrite Pending Urine Bilirubin Pending Urine Urobilinogen Pending Urine Leukocyte Esterase Pending Urine RBC Pending Urine Microscopic WBC Pending Urine Squamous Epithelial Cells Pending Urine Bacteria Pending Urine Glucose Pending Labs and/or images reviewed: Labs reviewed by me, Image(s) reviewed by me Assessment/Plan Assessment/Plan Chest pain rule out acute PE: Cardiology consult by Dr. Santamaria appreciated Pulmonary hypertension of severe degree (on sildenafil) Primary hypertension Prediabetes HX of drug abuse Left heart catheterization normal Ejection fraction 60 percent Patient has appointment with Dr. Santamaria 02/26/2025 9:45 AM. Plan discussed with: Patient Date of Service: February 19, 2025 Billing Provider: AYAAN DOMINGUEZ MD Common Visit Codes: [id number] INP/OBS CARE(HIGH) AYAAN DOMINGUEZ MD February 19, 2025 13:26
[2025-02-19 13:37] LABS: Urine Blood Negative /uL (Negative); Urine Clarity Clear (Clear); Urine Color Colorless (Yellow); Urine Protein, UAD Negative (Negative); Urine Squamous Epithelial Cell None Seen /hpf (<5); Urine Urobilinogen Normal (Negative); Urine WBC 1 /HPF (0-5)
[2025-02-19 13:49] LABS: Opiate Scree,Urine Neg (NEGATIVE)
[2025-02-19 13:51] LABS: Amphetamine Screen, Urine Neg (NEGATIVE); Barbiturate Scree,Urine Neg (NEGATIVE); Benzodiazephine Screen, Urine Neg (NEGATIVE); Cannabinoid Screen, Urine Neg (NEGATIVE); Cocaine Screen, Urine Neg (NEGATIVE); Phencyclidine Screen, Urine Neg (NEGATIVE)
--- NOTE | 2025-02-19 15:10 | DVHINCON2 ---
Date Seen: February 19, 2025 Referring Physician MD Kvng Reason for Consultation Chest pain History of Present Illness This is a 74-year-old female with a past medical history of severe pulmonary hypertension on sildenafil therapy, primary hypertension, prediabetes, anxiety, depression, and history of drug abuse quitting approximately 10 years ago who presented to the emergency room via EMS with a complaint of chest pain since Saturday. Patient describes her chest pain as substernal radiating to the left chest wall area and left flank area, sharp in nature, intermittent, and non provoked. Patient currently follows up in the outpatient setting with Dr. Santamaria undergoing a recent cardiac catheterization without catheter based intervention given normal coronaries, a ventriculography revealing an EF of 60%, and significant pulmonary hypertension with right ventricular systolic pressures of 60 mmHg (02/10/2025). She underwent multiple 12 lead electrocardiogram revealing a sinus rhythm with an associated first-degree atrioventricular block. CBC is unremarkable. UA is WNL. Troponin negative x 2. D-DIMER 1.39, BUN 25, AGITATOR OPERATOR 1.24, CA 10.5. Chest x-ray shows bilateral subsegmental platelike atelectasis. Patient was admitted to the hospital. I am asked to consult on this patient. Past Medical History Past medical history reviewed. No other significant than mentioned above. Past Surgical History Past surgical history reviewed. No other significant than mentioned above. Family History: Alcoholism G8 FATHER Arthritis G8 MOTHER Diabetes mellitus G8 MOTHER FH: lupus G8 SISTER Allergies: Coded Allergies: NO KNOWN ALLERGIES (Unverified , 02/18/25) Home Meds Reported Medications Nortriptyline Hcl (PAMELOR CAPSULE) 25 Mg Cp, 25 MG GT DAILY, CAP 02/19/25 Amitriptyline Hcl (Amitriptyline Hcl) 10 Mg Tab, 10 MG PO HS for 30 Days, MG 0 Refills 02/19/25 Topiramate (Topiramate) 25 Mg Cap, 25 MG PO for 30 Days, MG 02/19/25 Sertraline Hcl (Sertraline Hcl) 50 Mg Tab, 50 MG PO DAILY for 30 Days, MG 02/19/25 Prazosin Hcl (Minipres) 1 Mg Cp, 1 CAP PO QPM, #30 CAP 02/19/25 Cetirizine Base (Quzyttir) 10 Mg/Ml Inj, 10 MG IV DAILY, INJ 02/19/25 Sildenafil Citrate (Viagra) 50 Mg Tab, 25 MG PO TID, TAB 02/19/25 Sildenafil Citrate (Viagra) 50 Mg Tab, 1 TAB PO UD, #6 TAB 5 Refills 02/19/25 Furosemide (Furosemide) 20 Mg Tab, MG PO BIDD for 30 Days, MG 02/19/25 Buprenorphine HCl (Belbuca) 75 Mcg Mis, 75 MCG BU, MISC 02/19/25 Lidocaine (Lidocaine Patch 5%) 5 % Pad, 5 % EX DAILY, PAD 02/19/25 Diphenhydramine Hcl (Banophen) 25 Mg Cap, 25 MG PO TID, CAP 02/19/25 Fluoxetine Hcl (Fluoxetine Hcl) 20 Mg Cap, 20 MG PO DAILY for 30 Days, MG 02/19/25 Aspirin (Aspir-Low) 81 Mg Tab, 81 MG PO DAILY for 30 Days, MG 02/19/25 Famciclovir (Famciclovir) 125 Mg Tab, 125 MG PO BID, TAB 02/19/25 Famotidine (Famotidine) 20 Mg Tab, 20 MG PO BID for 30 Days, MG 02/19/25 Tizanidine Hydrochloride (Zanaflex) 4 Mg Tab, 0.5 TAB PO QPM, #30 TAB 02/19/25 Loratadine (Loradamed) 10 Mg Tab, 10 MG PO DAILY, MG 02/19/25 Levetiracetam (Keppra) 500 Mg Tab, 1 TAB PO BID, #180 TAB 3 Refills 02/19/25 Pantoprazole Sodium (PANTOPRAZOLE SODIUM) 40 Mg Inj, 40 MG IV, INJ 02/19/25 Meclizine Hcl (Meclizine Hcl) 25 Mg Tab, 25 MG PO TID for 30 Days, MG 02/19/25 Metoprolol Tartrate (Metoprolol Tartrate) 50 Mg Tab, 50 MG PO for 30 Days, MG 02/19/25 Atorvastatin Calcium (Lipitor) 20 Mg Tab, 1 TAB PO DAILY, #90 TAB 1 Refill 02/19/25 Gabapentin (Gabapentin) 100 Mg Cap, 100 MG PO TID 02/19/25 Oyster Shell (OYSTER SHELL CALCIUM 500) 500 Mg Tab, 500 MG OR DAILY, TAB 02/19/25 Baclofen (Baclofen) 20 Mg Tab, 10 MG PO TID, TAB 02/19/25 Pancreatic Enzymes (CREON) 3,000 Unit Cap, 6000 UNIT PO TID, CAP 02/19/25 Current Medications Current Medications Medications (Trade) Dose Ordered Sig/Murtaza Route PRN Reason Start Time Stop Time Status Last Admin Sodium Chloride (Saline Lock Ns) 10 ml Q8HR IV 02/19/25 06:00 02/19/25 05:52 Ondansetron HCl (Zofran) 4 mg Q4HP PRN IV NAUSEA / VOMITING 02/18/25 23:00 Morphine Sulfate 2 mg Q4HPRN PRN IV SEVERE PAIN (7-10 PAIN SCALE) 02/18/25 23:00 02/19/25 03:37 Nitroglycerin (Ntrostat Sublingual) 0.4 mg Q5MINP PRN SL FOR CHEST PAIN 02/18/25 23:00 Morphine Sulfate 2 mg Q30M PRN IV FOR CHEST PAIN 02/18/25 23:00 Aspirin 81 mg DAILY PO 02/19/25 10:00 02/19/25 09:47 Atorvastatin Calcium (Lipitor) 40 mg HS PO 02/19/25 22:00 Enoxaparin Sodium (Lovenox) 40 mg DAILY SC 02/19/25 10:00 02/19/25 09:49 Pantoprazole Sodium (Protonix) 40 mg DAILY IV 02/19/25 10:00 02/19/25 09:49 Furosemide (Lasix Tablet) 20 mg DAILY PO 02/19/25 10:00 02/19/25 09:47 Sertraline HCl (Zoloft) 50 mg DAILY PO 02/19/25 10:00 02/19/25 09:48 Diagnostic Test (Pha) (Accu-Chek Comfort Curve T) 1 strip ACHS 02/19/25 07:00 02/19/25 11:48 Insulin Human Regular (InsuLIN R) ACHS SC 02/19/25 07:00 Dextrose 50 ml UD PRN IV Blood Sugar LESS THAN 60 02/19/25 00:45 Review of Systems Constitutional: No symptom reported Ears, Nose, & Throat: No symptom reported Eyes: No symptom reported Neurological: No symptoms reported Pulmonary/Respiratory: No symptom reported Cardiovascular: Chest pain Gastrointestinal: No symptom reported Genitourinary: No symptom reported Musculoskeletal: No symptom reported Skin: No symptom reported Psychiatric: No symptom reported Endocrine: No symptom reported Hemotologic/Lymphatic: No symptom reported Vital Signs Vital Signs Date Time Temp Pulse Resp B/P (MAP) Pulse Ox O2 Delivery O2 Flow Rate FiO2 02/19/25 09:47 124/61 02/19/25 09:30 97.3 72 16 94 97.3 02/19/25 08:00 Room Air* 0 21 Physical Exam GENERAL: Alert and oriented x 3. No acute distress. EYES: PERRL, EOMI. Anicteric. HENT: Moist mucous membranes. LUNGS: Clear to auscultation bilaterally. CARDIOVASCULAR: Regular rate and rhythm. ABDOMEN: Soft, nontender and nondistended. EXTREMITIES: No edema. NEUROLOGIC: No focal neurological deficits. SKIN: Warm, dry. Labs/Diagnostic Data Labs Test 02/19/25 11:42 02/19/25 05:55 02/19/25 03:15 02/18/25 21:58 Range/Units POC Glucose 89 70-106 mg/dl White Blood Count 6.8 4.4-10.8 10^3/uL Red Blood Count 4.14 4.0-5.20 10^6/uL Hemoglobin 11.3 L 12.2-16.2 g/dL Hematocrit 34.8 L 36.0-46.0 % Mean Corpuscular Volume 84.1 80.0-100.0 fL Mean Corpuscular Hemoglobin 27.2 L 28.0-32.0 pg Mean Corpuscular Hemoglobin Concent 32.4 32.0-36.0 g/dL Red Cell Distribution Width 16.3 H 11.8-14.3 % Platelet Count 301 140-450 10^3/uL Mean Platelet Volume 9.7 6.9-10.8 fL Neutrophils (%) (Auto) 61.5 37.0-80.0 % Lymphocytes (%) (Auto) 24.6 10.0-50.0 % Monocytes (%) (Auto) 11.0 0.0-12.0 % Eosinophils (%) (Auto) 2.4 0.0-7.0 % Basophils (%) (Auto) 0.5 0.0-2.0 % Neutrophils # (Auto) 4.2 1.6-8.6 10 ^3/uL Lymphocytes # (Auto) 1.7 0.4-5.4 10 ^3/uL Monocytes # (Auto) 0.7 0-1.3 10 ^3/uL Eosinophils # (Auto) 0.2 0-0.8 10 ^3/uL Basophils # (Auto) 0 0-0.2 10 ^3/uL Nucleated Red Blood Cells 0.2 % Sodium Level 142 136-145 mmol/L Potassium Level 4.3 3.5-5.1 mmol/L Chloride Level 104 98-107 mmol/L Carbon Dioxide Level 29 20-31 mmol/L Anion Gap 9 5-15 Blood Urea Nitrogen 25 H 9-23 mg/dL Creatinine 1.24 H 0.550-1.02 mg/dL Glomerular Filtration Rate Calc 46 >90 mL/min BUN/Creatinine Ratio 20.2 H 10.0-20.0 Serum Glucose 149 H 74-106 mg/dL Calcium Level 10.5 H 8.7-10.4 mg/dL Magnesium Level 2.1 1.6-2.6 mg/dL Total Bilirubin 0.5 0.2-1.0 mg/dL Aspartate Amino Transferase (AST) 13 13-40 U/L Alanine Aminotransferase (ALT) 13 7-40 U/L Alkaline Phosphatase 92 46-116 U/L Total Protein 7.5 5.7-8.2 g/dL Albumin 4.7 3.2-4.8 g/dL Hepatitis B Surface Antigen Negative Negative Hepatitis C Antibody Negative Negative Influenza Type A Antigen Negative Negative Influenza Type B Antigen Negative Negative SARS-CoV-2 Antigen (Rapid) Negative NEGATIVE Troponin I High Sensitivity 8 </=34 ng/L Thyroid Stimulating Hormone (TSH) 3.20 0.55-4.78 uIU/mL Test 02/18/25 20:14 Range/Units D-Dimer, Quantitative 1.39 H 0.0-0.49 mg/L FEU Hemoglobin A1c 6.2 H <5.7 % A1C B-Type Natriuretic Peptide 133.95 0-100 pg/mL Lipase 41 12-53 U/L Assessment Chest pain rule out acute PE. Pulmonary hypertension of severe degree (on sildenafil). Primary hypertension. Prediabetes. History of drug abuse. Plan/Recommendation I agree with your ongoing assessment and care of plan. Patient has been seen by Camelia Dasilva NP on my behalf, her and I discussed the plan with the patient. The patient underwent a transthoracic echocardiogram on 11/03/2024 revealing an LVEF of 60% right ventricular systolic pressures of 90 mmHg. She also underwent a recent right and left cardiac catheterization without catheter based intervention given normal coronaries and with right ventricular systolic pressure is measuring at 60 mmHg (02/10/2025). Patient is to continue sildenafil therapy. Follow up with Dr. Santamaria's as scheduled on 02/26/2025 at 9:45 a.m. Aspirin, Lipitor. DVT and GI prophylactics. Diuretics with Lasix. Morphine for pain management. Additional plan as per the hospital course. Plan discussed with: Patient NYHA Physical activity limitations: NA Date of Service: February 19, 2025 Billing Provider: REGINO ELLER MD Cardiology Common Codes: [id number] INP/OBS CARE (High) REGINO ELLER MD February 19, 2025 12:22
[2025-02-19] MEDS: ATORVASTATIN 20 MG TAB PO SCH (21:43)
[2025-02-19] MEDS: MELATONIN 5 MG TAB PO ONE (21:43)
[2025-02-20 01:00] VITALS: BP 129/64; PULSE 64; RESP 16; TEMP 97.4; O2SAT 99
[2025-02-20 05:00] VITALS: BP 114/61; PULSE 59; RESP 18; TEMP 97.6; O2SAT 96
--- NOTE | 2025-02-20 08:10 | DVHPN2 ---
Reviewed: Care Plan, H&P, Labs, Medications, Previous Orders, Radiology Changes from previous H/P or p: No Changes Objective Vitals Vital Signs Date Time Temp Pulse Resp B/P (MAP) Pulse Ox O2 Delivery O2 Flow Rate FiO2 02/20/25 07:58 Room Air* 0 21 02/20/25 05:00 97.6 59 18 114/61 (78) 96 97.6 Intake/Output Intake and Output 02/20/25 07:00 Intake Total 825 ml Output Total 1 ml Balance 824 ml Intake Oral 825 ml Output Urine Total 1 ml # Voids 4 Medications Current Medications Medications Dose Ordered Sig/Murtaza Route Start Time Stop Time Status Last Admin Dose Admin Sodium Chloride 10 ml Q8HR IV 02/19/25 06:00 02/20/25 05:14 10 ML Ondansetron HCl 4 mg Q4HP PRN IV 02/18/25 23:00 Morphine Sulfate 2 mg Q4HPRN PRN IV 02/18/25 23:00 02/19/25 03:37 2 MG Nitroglycerin 0.4 mg Q5MINP PRN SL 02/18/25 23:00 Morphine Sulfate 2 mg Q30M PRN IV 02/18/25 23:00 Aspirin 81 mg DAILY PO 02/19/25 10:00 02/19/25 09:47 81 MG Atorvastatin Calcium 40 mg HS PO 02/19/25 22:00 02/19/25 21:43 40 MG Enoxaparin Sodium 40 mg DAILY SC 02/19/25 10:00 02/19/25 09:49 40 MG Pantoprazole Sodium 40 mg DAILY IV 02/19/25 10:00 02/19/25 09:49 40 MG Furosemide 20 mg DAILY PO 02/19/25 10:00 02/19/25 09:47 20 MG Sertraline HCl 50 mg DAILY PO 02/19/25 10:00 02/19/25 09:48 50 MG Diagnostic Test (Pha) 1 strip ACHS 02/19/25 07:00 02/20/25 06:04 1 STRIP Insulin Human Regular ACHS SC 02/19/25 07:00 Dextrose 50 ml UD PRN IV 02/19/25 00:45 Laboratory Results Laboratory Tests 02/19/25 05:55 Urinalysis Test 02/19/25 13:05 Urine Color Colorless (Yellow) Urine Clarity Clear (Clear) Urine pH 6.0 (5.0-9.0) Urine Specific [place] 1.010 (1.001-1.035) Urine Protein Negative (Negative) Urine Ketones Negative (Negative) Urine Blood Negative /uL (Negative) Urine Nitrite Negative (Negative) Urine Bilirubin Negative (Negative) Urine Urobilinogen Normal mg/dL (Negative) Urine Leukocyte Esterase Trace /uL (Negative) Urine RBC 1 /hpf (0 - 4) Urine Microscopic WBC 1 /HPF (0-5) Urine Squamous Epithelial Cells None seen /hpf (<5) Urine Bacteria None seen /hpf (None Seen) Urine Glucose Normal mg/dL (Normal) Microbiology Microbiology Date/Time Source Procedure Growth Status 02/19/25 03:15 Nose MRSA Screen - Final Complete Labs and/or images reviewed: Labs reviewed by me, Image(s) reviewed by me Assessment/Plan Assessment/Plan Chest pain rule out acute PE: Cardiology consult by Dr. Harding appreciated Pulmonary hypertension of severe degree (on sildenafil) Primary hypertension Prediabetes HX of drug abuse Left heart catheterization normal Ejection fraction 60 percent Patient has appointment with Dr. Santamaria 02/26/2025 9:45 AM. Plan discussed with: Patient My Orders Orders - AYAAN DOMINGUEZ MD Procedure Category Date Status Time Discharge DISCHARGE 02/20/25 Transmitted 08:08 Date of Service: February 20, 2025 Billing Provider: AYAAN DOMINGUEZ MD Common Visit Codes: [id number] INP/OBS CARE(HIGH) AYAAN DOMINGUEZ MD February 20, 2025 08:10
--- NOTE | 2025-02-20 08:13 | DVHDS2 ---
Discharge Summary Date of Admission February 18, 2025 at 22:51 Date of Discharge: February 20, 2025 Admitting Diagnosis Chest pain Wounds: None Labs/Diagnostic Data: Laboratory Results Test 02/20/25 06:03 02/19/25 13:05 02/19/25 05:55 02/19/25 03:15 POC Glucose 101 mg/dl (70-106) Urine Color Colorless (Yellow) Urine Clarity Clear (Clear) Urine pH 6.0 (5.0-9.0) Urine Specific [place] 1.010 (1.001-1.035) Urine Protein Negative (Negative) Urine Ketones Negative (Negative) Urine Blood Negative /uL (Negative) Urine Nitrite Negative (Negative) Urine Bilirubin Negative (Negative) Urine Urobilinogen Normal mg/dL (Negative) Urine Leukocyte Esterase Trace /uL (Negative) Urine RBC 1 /hpf (0 - 4) Urine Microscopic WBC 1 /HPF (0-5) Urine Squamous Epithelial Cells None seen /hpf (<5) Urine Bacteria None seen /hpf (None Seen) Urine Glucose Normal mg/dL (Normal) Urine Opiates Screen Neg (NEGATIVE) Urine Fentanyl Screen Neg (NEGATIVE) Urine Barbiturates Screen Neg (NEGATIVE) Urine Phencyclidine Screen Neg (NEGATIVE) Urine Amphetamines Screen Neg (NEGATIVE) Urine Benzodiazepines Screen Neg (NEGATIVE) Urine Cocaine Screen Neg (NEGATIVE) Urine Cannabinoids Screen Neg (NEGATIVE) White Blood Count 6.8 10^3/uL (4.4-10.8) Red Blood Count 4.14 10^6/uL (4.0-5.20) Hemoglobin 11.3 g/dL (12.2-16.2) Hematocrit 34.8 % (36.0-46.0) Mean Corpuscular Volume 84.1 fL (80.0-100.0) Mean Corpuscular Hemoglobin 27.2 pg (28.0-32.0) Mean Corpuscular Hemoglobin Concent 32.4 g/dL (32.0-36.0) Red Cell Distribution Width 16.3 % (11.8-14.3) Platelet Count 301 10^3/uL (140-450) Mean Platelet Volume 9.7 fL (6.9-10.8) Neutrophils (%) (Auto) 61.5 % (37.0-80.0) Lymphocytes (%) (Auto) 24.6 % (10.0-50.0) Monocytes (%) (Auto) 11.0 % (0.0-12.0) Eosinophils (%) (Auto) 2.4 % (0.0-7.0) Basophils (%) (Auto) 0.5 % (0.0-2.0) Neutrophils # (Auto) 4.2 10 ^3/uL (1.6-8.6) Lymphocytes # (Auto) 1.7 10 ^3/uL (0.4-5.4) Monocytes # (Auto) 0.7 10 ^3/uL (0-1.3) Eosinophils # (Auto) 0.2 10 ^3/uL (0-0.8) Basophils # (Auto) 0 10 ^3/uL (0-0.2) Nucleated Red Blood Cells 0.2 % Sodium Level 142 mmol/L (136-145) Potassium Level 4.3 mmol/L (3.5-5.1) Chloride Level 104 mmol/L (98-107) Carbon Dioxide Level 29 mmol/L (20-31) Anion Gap 9 (5-15) Blood Urea Nitrogen 25 mg/dL (9-23) Creatinine 1.24 mg/dL (0.550-1.02) Glomerular Filtration Rate Calc 46 mL/min (>90) BUN/Creatinine Ratio 20.2 (10.0-20.0) Serum Glucose 149 mg/dL (74-106) Calcium Level 10.5 mg/dL (8.7-10.4) Magnesium Level 2.1 mg/dL (1.6-2.6) Total Bilirubin 0.5 mg/dL (0.2-1.0) Aspartate Amino Transferase (AST) 13 U/L (13-40) Alanine Aminotransferase (ALT) 13 U/L (7-40) Alkaline Phosphatase 92 U/L (46-116) Total Protein 7.5 g/dL (5.7-8.2) Albumin 4.7 g/dL (3.2-4.8) Hepatitis B Surface Antigen Negative (Negative) Hepatitis C Antibody Negative (Negative) Influenza Type A Antigen Negative (Negative) Influenza Type B Antigen Negative (Negative) SARS-CoV-2 Antigen (Rapid) Negative (NEGATIVE) Test 02/18/25 21:58 02/18/25 20:14 Troponin I High Sensitivity 8 ng/L (</=34) Thyroid Stimulating Hormone (TSH) 3.20 uIU/mL (0.55-4.78) D-Dimer, Quantitative 1.39 mg/L FEU (0.0-0.49) Hemoglobin A1c 6.2 % A1C (<5.7) B-Type Natriuretic Peptide 133.95 pg/mL (0-100) Lipase 41 U/L (12-53) Other Laboratory Tests 02/19/25 05:55 Brief Hx & Hospital Course: 74-year-old female with a history of pulmonary hypertension drug abuse recent heart catheterization normal came in complaining of chest pain troponin negative x3. PE ruled out cardiology consult by Dr. Harding patient use sildenafil for severe pulmonary hypertension recent left heart catheterization was normal echo 60 percent ejection fraction no further cardiac workup seen by bleach tester Dr. Harding patient was cleared for discharge by Cardiology patient has an appointment with Dr. Santamaria on 02/26/25 at 9:45 a.m. Consults/Reason for consult Cardiology Operations or Procedures Echocardiogram Condition at Discharge: Fair Final Diagnosis/Problems List Chest pain rule out acute PE: Cardiology consult by Dr. Santamaria appreciated Pulmonary hypertension of severe degree (on sildenafil) Primary hypertension Prediabetes HX of drug abuse Recent Left heart catheterization normal Ejection fraction 60 percent Patient has appointment with Dr. Santamaria 02/26/2025 9:45 AM. Discharge Disposition: Home Discharge Instruct/Medications Diet: Cardiac 2g Na,low cholest Activity: Light activity Follow Up/Referral: Keep your appointment with bleach tester Dr. Santamaria 02/26/2025 at 9:45 a.m. Continue all your previous home meds Medications: none 36 (Time taken for discharge summary 36 minutes) Discharge Statement: "Patient was advised to return to the ER or call 911 if any headaches, dizziness, shortness of breath, chest pain, abdominal pain, bleeding, fevers, or worsening of medical condition. Patient was counseled about treatment plan, medications, possible side effects, patientverbalized understanding. All questions were answered to the best of my ability. This discharge took greater then 30 minutes in planning, reviewing documentation, counseling the patient, and discussing with other team members." ASSESSMENT ASSESSMENT Hospital Course Improved Assessment Chest pain rule out acute PE: Cardiology consult by Dr. Santamaria appreciated Pulmonary hypertension of severe degree (on sildenafil) Primary hypertension Prediabetes HX of drug abuse Recent Left heart catheterization normal Ejection fraction 60 percent Patient has appointment with Dr. Santamaria 02/26/2025 9:45 AM. Date of Service: February 20, 2025 Billing Provider: AYAAN DOMINGUEZ MD Common Visit Codes: [id number]/[id number] DISCH DAY >30min AYAAN DOMINGUEZ MD February 20, 2025 08:13
[2025-02-20 09:00] VITALS: BP 131/81; PULSE 66; RESP 18; TEMP 97.6; O2SAT 95
[2025-02-20 09:25] VITALS: BP 131/81; PULSE 66; RESP 18; TEMP 97.6; O2SAT 95
--- NOTE | 2025-02-20 23:46 | DVHPN2 ---
Progress Note - Dictate Date Seen: February 20, 2025 Medical Necessity Reason Pt with a Central, PICC or Fol: No Subjective Patient was seen and evaluated in follow up. No overnight events. Patient reported feeling better today. Patient denies any cardiac symptoms. Patient is cardiac stable for discharge. Telemetry reviewed. vital signs Vital Sign Date Time Temp Pulse Resp B/P (MAP) Pulse Ox O2 Delivery O2 Flow Rate FiO2 02/20/25 09:25 97.6 66 18 95 02/20/25 09:00 131/81 (98) 02/20/25 07:58 Room Air* 0 21 Total Intake and Output 02/19/25 02/19/25 02/20/25 15:00 23:00 07:00 Intake Total 525 ml 300 ml Output Total 1 ml Balance 525 ml 299 ml objective GENERAL: Alert and oriented x 3. No acute distress. EYES: PERRL, EOMI. Anicteric. HENT: Moist mucous membranes. LUNGS: Clear to auscultation bilaterally. CARDIOVASCULAR: Regular rate and rhythm. ABDOMEN: Soft, nontender and nondistended. EXTREMITIES: No edema. NEUROLOGIC: No focal neurological deficits. SKIN: Warm, dry. laboratory and microbiology Laboratory Tests 02/19/25 05:55 Test 02/19/25 05:55 Range/Units Serum Glucose 149 H 74-106 mg/dL Problem List Chest pain rule out acute PE. Pulmonary hypertension of severe degree (on sildenafil). Primary hypertension. Prediabetes. History of drug abuse. Assessment/Plan Continued all current supportive medical care. Sildenafil therapy. Aspirin, Lipitor. Diuretics with Lasix. DVT and GI prophylactics. Morphine for pain management. Additional plan as per the hospital course. Plan discussed with: Patient REGINO ELLER MD February 20, 2025 12:34
--- NOTE | 2025-02-21 02:24 | DVHSR ---
APPROVED REPORT EXAM: Two-dimensional and M-mode echocardiogram with Doppler and color Doppler. Blood Pressure: 134/54 mmHg INDICATION acute chest pain RISK FACTORS Height: 5'4, Weight: 144 DIMENSIONS LVDd3.8 (3.8-5.7cm)LA (2D)3.9 (1.9-4.0cm)Aortic Root3.2 (2.0-3.7cm) LVDs2.3 (2.5-4.0cm)LA (MM) (1.9-4.0cm)Aortic Cusp Exc1.6 (1.5-2.0cm) EF (%) 60.0 (55-70%)Rt. Atrium3.3 (1.9-4.0cm)Asc. Aorta3.2 cm IVSd0.7 (0.7-1.1cm)RV (D)3.9 (1.8-2.4cm) PWd1.0 (0.7-1.1cm) Mitral Valve MitralMitral Stenosis E wave0.66m/sMV Mean GR.mmHg A wave0.92m/sMV Peak GR.54mmHg E/A ratio0.72D MVAcm2 DECEL [id number] 1/2 [place] Aortic Valve Aortic ValveAortic Stenosis V10.92m/Abby Mean GR.mmHg V21.27m/Abyb Peak GR.6mmHg LVOT Diameter1.8 (1.8-2.4cm)Doppler AVA1.84cm2 AI P 1/2 Rvng427.69ms Pulmonic Valve V20.99m/s Tricuspid Valve TR Velocity4.23m/s [id number] Conclusion NORMAL LV EF AND IS 65% MILD LVH AND MILD LV DIASTOLIC DYSFUNCTION CALCIFIED AORTIC LEAFLETS BUT NO STENOSIS MODERATE DEGREE AORTIC REGURGITATION MODERATE DEGREE MR MODERATE DEGREE TR CRITICAL PULMONARY HYPERTENSION RVSP IS 92 MM OF HG AND IS VERY HIGH NO EFFUSION
== END 2025-02-20 11:00 | disposition home or self-care (01) | DRG 315 ==
LOC: ER 19:21 → EDBD 19:21 → OVERFLOW 22:51 → TELE-CENTR 02-19 02:45
PROVIDERS: ADMIT Family Medicine; ATTEND Family Medicine
DX: I27.20 Pulmonary hypertension, unspecified (principal); I24.9 Acute ischemic heart disease, unspecified; N17.9 Acute kidney failure, unspecified; J98.11 Atelectasis; I50.9 Heart failure, unspecified; I11.0 Hypertensive heart disease with heart failure; E11.9 Type 2 diabetes mellitus without complications; F41.9 Anxiety disorder, unspecified; Z20.822 Contact with and (suspected) exposure to COVID-19; I44.0 Atrioventricular block, first degree; E78.5 Hyperlipidemia, unspecified; R00.1 Bradycardia, unspecified; Z87.891 Personal history of nicotine dependence; Z83.3 Family history of diabetes mellitus; Z79.899 Other long term (current) drug therapy; Z79.82 Long term (current) use of aspirin
CPT/HCPCS: 36415; 71045; 78582; 80053; 80307; 81001; 82962; 83036; 83690; 83735; 83880; 84443; 84484; 85025; 85379; 86803; 87081; 87340; 87426; 87804; 93005; 93306; 93970; G0378; J2470